=== PATIENT | female | born 1960 | race Caucasian/White ===

== ENCOUNTER → 2017-11-25 | Outpatient (CLI) | payer OTHER ==
[2017-11-25 12:33] LABS: ALBUMIN 3.8 g/dL (3.4-5.0); DIRECT BILIRUBIN 0.1 mg/dL (<0.1-0.3); TOTAL BILIRUBIN 0.6 mg/dL (<0.1-1.0); TOTAL PROTEIN 6.8 g/dL (6.4-8.2)
== END ==
LOC: M.LAB 12:02
PROVIDERS: Family Medicine
DX: R79.89 Other specified abnormal findings of blood chemistry (principal)

== ENCOUNTER → 2019-02-11 | Day surgery (SDC) | payer OTHER ==
[~2019-02-11] MED LIST: OXYCODONE HCL 55 MG PO; TRAZODONE HCL50 MG PO
--- NOTE | ~2019-02-11 | OP ---
[address] [address] OPERATIVE REPORT Name: FELIX MONAE Room: [facility].#: [id number] Admission: 02/11/19 Attend Phys: Brandee Reynoso DO Discharge: Date of : 64 Report #: [id number] THIS REPORT FOR: //name// CC: Brandee Montalvo DATE OF SERVICE: 02/11/2019 PREPROCEDURE DIAGNOSIS: Gallstones. POSTPROCEDURE DIAGNOSES: Chronic cholecystitis with cholelithiasis. FINDINGS: Fairly largely distended gallbladder with stones and multiple dense overlying adhesions between the omentum and the stomach. SURGEON: Brandee Reynoso D.O. CO-SURGEON: Quin Goddard, PGY-2. PRODUCTION CONTROL CLERK: Royal Rodríguez, MS-4. PROCEDURE PERFORMED: Laparoscopic cholecystectomy. ANESTHESIA: General endotracheal and local. ESTIMATED BLOOD LOSS: 3. DRAINS: None. SPECIMENS: Gallbladder. CONDITION: Stable. COMPLICATIONS: None. DISPOSITION: PACU to home. HISTORY OF PRESENT ILLNESS: The patient is a very pleasant 58-year-old female, who presented to my office with a complaint of intermittent bouts of upper abdominal pain. She was found to have gallstones. She was then consented for a laparoscopic cholecystectomy. Risks discussed included bleeding, infection, pain, scar formation, injury to bowel, liver or bile duct, hernia at the incision sites, need for an open procedure and risks of general anesthesia. The patient understood these risks and elected to proceed. DESCRIPTION OF PROCEDURE: The patient was brought to the operating room. She [facility] [address] [place] [address] OPERATIVE REPORT Name: FELIX MONAE Room: [facility].R.#: [id number] Admission: 02/11/19 Attend Phys: Brandee Reynoso DO Discharge: Date of : 64 Report #: [id number] was laid supine on the operating room table. SCDs were placed on bilateral lower extremities. Ancef was given in the perioperative period. General endotracheal anesthesia was induced by Anesthesia without difficulty. Abdomen was prepped and draped in the standard sterile fashion. Timeout was performed to verify patient and procedure. 10 mL of 0.5% Marcaine were injected in the infraumbilical area. Curvilinear infraumbilical incision was made with an 11 blade. Cautery was used for hemostasis. S retractors were used to visualize the fascia. Fascia was grasped and elevated between 2 Kochers. Fascia was incised using cautery. Peritoneum was bluntly entered using a Emily clamp. Finger was introduced into the abdomen to assure that there were no bryn-incisional adhesions, none were identified. Two stitches of 0 Vicryl placed on the fascia. Elo trocar was introduced and secured with 0 Vicryl stitches. Abdomen was insufflated. The patient was placed head up and tilted left side down. Camera was introduced and secured with 0 Vicryl stitches. Abdomen was insufflated. Camera was introduced and a brief anterior abdominal exploration was undertaken with findings of a fairly largely distended gallbladder with multiple overlying adhesions. Adhesions were between the omentum and the gallbladder and the stomach and the gallbladder. Three 5 mm trocars were introduced, one in the subxiphoid and two in the right upper quadrant. Gallbladder was grasped and elevated. Adhesions were taken down carefully using a combination of blunt and cautery dissection until the triangle of Calot could be visualized. Peritoneum overlying the triangle of Calot was incised using cautery. Both duct and artery were then easily visualized, both were circumferentially dissected free using a [place] dissector. Any tissues posterior to the artery were removed. Common bile duct could be seen below as this then afforded the critical view. Duct and artery were both doubly clipped and ligated. Gallbladder was then removed from the liver bed utilizing cautery with no further difficulty. Specimen was placed within an EndoCatch bag. Liver bed was inspected. There was one small area of bleeding, which was easily controlled with cautery. Clips were also inspected. They appeared to be intact. There was no bleeding or leakage noted from the area of the clips. Abdomen was then completely desufflated after removing our trocars under direct visualization. There was no bleeding noted from the peritoneum. Elo trocar was removed. EndoCatch bag was removed with specimen intact. Stones were palpated within the gallbladder. It was passed off for permanent pathology. Kochers were placed on the fascia of our infraumbilical port. Previously placed 0 Vicryl stitches were removed and a #0 Vicryl stitch was placed in a [id number] fashion with excellent approximation of the fascia. An additional 10 mL of 0.5% Marcaine were injected in the fascia. All wounds were closed with 4-0 Monocryl. A total of 30 mL of 0.5% Marcaine were used to anesthetize the wounds. Wounds were then cleansed and covered with Mastisol, Steri-Strips, 4 x 4's, and a Tegaderm. The patient [id number] OPERATIVE REPORT Name: FELIX MONAE Room: [facility]#: [id number] Admission: 02/11/19 Attend Phys: Brandee Reynoso DO Discharge: Date of : 64 Report #: [id number] from anesthesia, was extubated and transported to the recovery room with no further difficulties. Counts were correct x 2 at the conclusion of the case. By: [id number] Reynoso DO /nt
== END | disposition home or self-care (01) ==
LOC: M.SUR 06:12
DX: K80.10 Calculus of gallbladder with chronic cholecystitis without obstruction (principal); Z79.899 Other long term (current) drug therapy